=== PATIENT | male | born 1955 | race Caucasian/White ===

== ENCOUNTER 2023-11-09 18:55 | Inpatient (IN) | payer BC ==
[~2023-11-09] VITALS: Ht 177.8 cm; Wt 95.4 kg
[2023-11-09 19:16] LABS: BASO % 0.4 % (0.0-2.0); EOS # 0.3 K/mm3 (0.0-0.7); EOS % 3.4 % (0.0-4.0); GRAN # 4.9 K/mm3 (1.4-6.5); GRAN % 52.2 % (42.2-75.2); HEMOGLOBIN 15.9 g/dl (13.5-18.0); LYMPH # 3.3 K/mm3 (1.2-3.4); LYMPH % 34.6 % (20.0-51.0); MEAN CELL VOLUME 88 fl (80.0-100.0); MEAN CORPUSCULAR HEMOGLOBIN 33 pg (27-31); MEAN CORPUSCULAR HGB CONC 37 g/dl (33.0-37.0); MONO # 0.9 K/mm3 (0.1-0.6); PLATELET COUNT 193 K/mm3 (130-400); RED BLOOD COUNT 4.88 M/mm3 (4.20-5.60); REDCELL DISTRIBUTION WIDTH-CV 11.5 % (11.5-14.5)
[2023-11-09 19:36] LABS: ALBUMIN 4.2 gm/dL (3.4-4.8); BILIRUBIN,TOTAL 1.4 mg/dL (0.2-1.2); CALCIUM 10.1 mg/dL (8.4-10.2); CREATININE, serum 1.35 mg/dL (0.72-1.25); INR 1.2 (0.8-3.0); POTASSIUM 4.2 mmol/L (3.5-4.5); PROTHROMBIN TIME 12.8 SECONDS (9.7-12.8); TOTAL PROTEIN 7.8 gm/dL (6.2-8.1)
[2023-11-09 19:43] LABS: TROPONIN-I 0.073 ng/mL (0.00-0.033)
[2023-11-09] MEDS ORDERED: NS 1,000 ML IV ONE (20:00)
[2023-11-09] MEDS ORDERED: SYNTHROID0.137 MG PO (20:03)
[2023-11-09] MEDS ORDERED: SYNJARDY XR 121 EACH PO (20:03)
[2023-11-09] MEDS ORDERED: PRINIVIL2.5 MG PO (20:04)
[2023-11-09] MEDS ORDERED: LIPITOR20 MG PO (20:04)
[2023-11-09] MEDS ORDERED: FLOMAX 0.40.4 MG/CAP PO (20:05)
[2023-11-09] MEDS ORDERED: ASPIRIN E.C. 8181 MG PO (20:06)
[2023-11-09] MEDS ORDERED: MOUNJARO7.5 MG/0.5 SQ (20:06)
[2023-11-09] MEDS ORDERED: TOPROL XL 25MG25 MG PO (20:06)
[2023-11-09] MEDS ORDERED: NITROSTAT0.4 MG/TAB SL (20:07)
[2023-11-09] MEDS ORDERED: PLAVIX 75MG TAB75 MG PO (20:08)
[2023-11-09] MEDS ORDERED: Morphine 4 MG/ML VIAL IV PRN (20:45)
[2023-11-09] MEDS ORDERED: Albuterol/Ipratropium 3 MG-0.5 MG/3 ML Neb Soln IH PRN (20:45)
[2023-11-09 21:00] VITALS: BP_SYST 117
[2023-11-09] MEDS ORDERED: Ondansetron 4 MG/2 ML VIAL IV PRN (21:00)
[2023-11-09] MEDS ORDERED: NS 1,000 ML IV SCH (21:00)
[2023-11-09] MEDS ORDERED: Acetaminophen 325 MG TAB PO PRN (21:00)
[2023-11-09] MEDS ORDERED: Atorvastatin 20 MG TAB PO SCH (21:00)
[2023-11-09] MEDS ORDERED: Sennosides/Docusate 8.6-50 MG TAB PO SCH (21:00)
[2023-11-09] MEDS ORDERED: Clopidogrel 75 MG TAB PO SCH (21:00)
[2023-11-09] MEDS ORDERED: Mag/Al Hydrox/Simeth Susp 30 ML CUP PO PRN (21:00)
[2023-11-09] MEDS ORDERED: Dextrose 50% Water 25 GM/50 ML SYRINGE IV PRN (21:45)
[2023-11-09] MEDS ORDERED: Dextrose (Glucose) 15 GM (4 x 3.75 GM) Chewable TABLET PACK PO PRN (21:45)
[2023-11-09] MEDS ORDERED: Glucagon 1 MG VIAL IM PRN (21:45)
[2023-11-09 22:22] VITALS: BP 127/75; PULSE 95; TEMP 98.1
[2023-11-09] MEDS ORDERED: EUTHYROX137 MCG (22:39)
[2023-11-09 23:20] VITALS: BP 117/73; PULSE 96; TEMP 98.4
[2023-11-10] VITALS (11 sets, daily range): BP systolic 110–134; BP diastolic 72–82; PULSE 86–96; TEMP 97.4–98.2
--- NOTE | 2023-11-10 03:19 | NUR ---
PT ARRIVED TO THE MEDICAL FLOOR AROUND 2200 FROM ED. STATED HE FEELS OK, AT BEDSIDE. ALERT AND ORIENTED X4. NO C/O CHEST PAIN, NAUSEA, OR DIZZINESS AT THIS TIME. IV PATENT WITH FLUIDS RUNNING. SHIFT ASSESSMENT COMPLETE,VSS. DENIES PAIN AT THIS TIME. ASKED PT TO CALL FOR HELP GETTING UP, PT AGREES. NIGHT MEDS HELD BECAUSE PT ALREADY TOOK HIS MEDS FOR THE DAY. RESUME MEDS IN AM PER ADMITTING PHYSICIAN. CALL LIGHT WITHIN REACH. DENIES FURTHER NEED AT THIS TIME.
--- NOTE | 2023-11-10 06:29 | NUR ---
PT DOES NOT TAKE INSULIN AT HOME AND DOES NOT AGREE TO TAKE WHILE HERE IN THE HOSPITAL. WILL BE PASSING ON TO ONCOMING NURSE TO SEE ABOUT HAVING HIM TAKE HIS HOME MEDICATION SYNJARDY XL 25MG DAILY. PT WILL BRING MEDICATION IN THIS MORNING.
[2023-11-10 07:12] LABS: BASO % 0.6 % (0.0-2.0); EOS # 0.3 K/mm3 (0.0-0.7); EOS % 3.5 % (0.0-4.0); GRAN # 3.9 K/mm3 (1.4-6.5); GRAN % 54.5 % (42.2-75.2); LYMPH # 2.4 K/mm3 (1.2-3.4); MEAN CELL VOLUME 88 fl (80.0-100.0); MEAN CORPUSCULAR HEMOGLOBIN 32 pg (27-31); MEAN CORPUSCULAR HGB CONC 36 g/dl (33.0-37.0); MEAN PLATELET VOLUME 10.4 fl (7.4-10.4); MONO # 0.6 K/mm3 (0.1-0.6); MONO % 8.1 % (1.7-9.3); PLATELET COUNT 165 K/mm3 (130-400); RED BLOOD COUNT 4.37 M/mm3 (4.20-5.60); REDCELL DISTRIBUTION WIDTH-CV 11.6 % (11.5-14.5)
[2023-11-10 07:18] LABS: HEMATOCRIT 38.5 % (42.0-52.0); HEMOGLOBIN 13.9 g/dl (13.5-18.0)
[2023-11-10 07:43] LABS: ALANINE AMINOTRANSFERASE 36 U/L (0-55); ALBUMIN 3.6 gm/dL (3.4-4.8); ALKALINE PHOSPHATASE 74 U/L (40-150); ANION GAP 10 mmol/L (7-16); AST,SGOT 26 U/L (5-34); BLOOD UREA NITROGEN 20 mg/dL (8-26); CARBON DIOXIDE 20 mmol/L (23-31); CHLORIDE 106 mmol/L (98-107); CREATININE, serum 1.05 mg/dL (0.72-1.25); GLUCOSE 151 mg/dL (70-99); SODIUM 136 mmol/L (136-145); TOTAL PROTEIN 6.7 gm/dL (6.2-8.1)
[2023-11-10 07:55] LABS: TROPONIN-I < 0.010 ng/mL (0.00-0.033)
[2023-11-10] MEDS ORDERED: Insulin Lispro (HumaLOG) SQ SCH (08:00)
[2023-11-10] MEDS ORDERED: Lisinopril 5 MG TAB PO SCH (09:00)
[2023-11-10] MEDS ORDERED: Clopidogrel 75 MG TAB PO SCH (09:32)
--- NOTE | 2023-11-10 09:47 | NUR ---
PATIENT AWAKE IN BED UPON ENTERING ROOM. MORNING MEDICATIONS ADMINISTERED. SHIFT ASSESSMENT COMPLETED. PATIENT AND UPDATED ON POC. DENIES ANY CHEST PAIN OR SOB. IVF INFUSING. FALL PRECAUTIONS IN PLACE, CALL LIGHT WITHIN REACH. WILL CONTINUE TO MONITOR.
--- NOTE | 2023-11-10 10:30 | NUR ---
municipal maintenance worker met with patient and at bedside to discuss discharge planning. Patient verified demographic information. Patient resides with his Emilie ([phone]). Pt sees Dr. Christopher as his PCP and uses [facility]. 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 Patient and deny any discharge needs at this time and plan for patient to return home when medically stable for discharge.. Discharge: Home
[2023-11-11] VITALS (22 sets, daily range): BP systolic 98–127; BP diastolic 63–78; PULSE 66–90; TEMP 97.5–98.5
--- NOTE | 2023-11-11 07:00 | NUR ---
Report received from RALEIGH Cole. Pt alert and oriented this AM. Sitting up on edge of bed; offers no complaints. NPO for heart cath today. All questions answered appropriately. Call light in reach.
[2023-11-11 07:49] LABS: BASO # 0.1 K/mm3 (0.0-0.2); BASO % 0.7 % (0.0-2.0); EOS # 0.4 K/mm3 (0.0-0.7); GRAN # 3.3 K/mm3 (1.4-6.5); GRAN % 47.6 % (42.2-75.2); HEMATOCRIT 39.2 % (42.0-52.0); HEMOGLOBIN 13.8 g/dl (13.5-18.0); LYMPH # 2.6 K/mm3 (1.2-3.4); LYMPH % 37.4 % (20.0-51.0); MEAN CELL VOLUME 90 fl (80.0-100.0); MEAN CORPUSCULAR HEMOGLOBIN 32 pg (27-31); MEAN CORPUSCULAR HGB CONC 35 g/dl (33.0-37.0); MEAN PLATELET VOLUME 10.5 fl (7.4-10.4); MONO # 0.6 K/mm3 (0.1-0.6); PLATELET COUNT 159 K/mm3 (130-400); RED BLOOD COUNT 4.37 M/mm3 (4.20-5.60); REDCELL DISTRIBUTION WIDTH-CV 11.7 % (11.5-14.5)
[2023-11-11 08:13] LABS: ALBUMIN 3.5 gm/dL (3.4-4.8); BILIRUBIN,TOTAL 1.3 mg/dL (0.2-1.2); CALCIUM 8.9 mg/dL (8.4-10.2); CREATININE, serum 0.92 mg/dL (0.72-1.25); TOTAL PROTEIN 6.7 gm/dL (6.2-8.1)
[2023-11-11 08:26] LABS: CHOLESTEROL RISK RATIO 2.7; MAGNESIUM 1.9 mg/dL (1.6-2.6)
[2023-11-11 08:34] LABS: THYROID STIMULATING HORMONE 2.506 uIU/mL (0.350-4.940)
--- NOTE | 2023-11-11 09:40 | NUR ---
Pt called concrete rod buster light to report he was having a bloody nose. This nurse assessed pt and found he was having small amount of bleeding from right nare. Bleeding stopped after 1-2 minutes. ZIA Saab notified due to pt recently starting blood thinners. No new orders received. Instructed pt to call if bleeding occurs again.
[2023-11-11] MEDS ORDERED: TURMERIC500 MG PO (10:01)
--- NOTE | 2023-11-11 11:05 | NUR ---
Initial visit; Patient and his thanked Steel Post Installer Supervisor for stopping to see how he was getting along. Harvey says he is just in "limbo" waiting to see what comes next. They both thanked Steel Post Installer Supervisor and asked that Steel Post Installer Supervisor keep Harvey in her prayers.
--- NOTE | 2023-11-11 14:11 | NUR ---
Pt taken down to aquatic life laborer at this time for heart cath.
--- NOTE | 2023-11-11 14:41 | NUR ---
SEE MERGE FOR PROCEDURE DOCUMENTATION
[2023-11-11] MEDS ORDERED: Midazolam 2 MG/2 ML VIAL IV SCH (15:08)
[2023-11-11] MEDS ORDERED: fentaNYL 50 MCG/ML 2 ML VIAL IV SCH (15:09)
[2023-11-11] MEDS ORDERED: Nitroglycerin 100 MCG/ML (Cath Lab) 10 ML VIAL IA SCH (15:12)
[2023-11-11] MEDS ORDERED: Heparin 1,000 UNITS/ML 10 ML Multi-Dose VIAL IA SCH (15:13)
[2023-11-11] MEDS ORDERED: Naloxone 0.4 MG/ML VIAL IV PRN (15:30)
--- NOTE | 2023-11-11 15:39 | NUR ---
PATIENT ALERT AND ORIENTED, VSS. PATIENT TRANSPORTED VIA SLIDEBOARD TO BED, POSITIONED FOR COMFORT. TRANSFERRED VIA BED TO MEDICAL 315. VITAL SIGNS TAKEN ON ARRIVAL, VSS. PT REPORTS IMPROVED PAIN LEVEL, DENIES NAUSEA. RADIAL SITE CDI. TRANSFER OF CARE TO RALEIGH TAVAREZ. CALL LIGHT WITHIN REACH, BED IN LOWEST POSITION AND X3 BEDRAILS IN PLACE.
--- NOTE | 2023-11-11 23:33 | NUR ---
PT ALERT AND ORIENTED X4. POST HEART CATH PROCEDURE, AT THE START OF MY SHIFT 11 ML OF AIR ALREADY LET OUT OF RADIAL BAND. NO SIGNS OF BLEEDING OR HEMATOMA. PT DENIES PAIN AT THIS TIME. SHIFT ASSESSMENT COMPLETE, MEDICATED PER EMAR. VSS, EVEN UNLABORED RESPR. IV TO R AC PATENT. DENIES FURTHER NEED AT THIS TIME. CALL LIGHT WITHIN REACH.
[2023-11-12] VITALS (7 sets, daily range): BP systolic 107–126; BP diastolic 60–75; PULSE 81–82; TEMP 98–98.2
[2023-11-12 06:40] LABS: BASO % 0.5 % (0.0-2.0); EOS # 0.4 K/mm3 (0.0-0.7); EOS % 5.4 % (0.0-4.0); GRAN # 3.4 K/mm3 (1.4-6.5); GRAN % 51.2 % (42.2-75.2); HEMOGLOBIN 14.3 g/dl (13.5-18.0); LYMPH # 2.1 K/mm3 (1.2-3.4); LYMPH % 32.2 % (20.0-51.0); MEAN CELL VOLUME 88 fl (80.0-100.0); MEAN CORPUSCULAR HEMOGLOBIN 32 pg (27-31); MEAN CORPUSCULAR HGB CONC 37 g/dl (33.0-37.0); MEAN PLATELET VOLUME 10.1 fl (7.4-10.4); MONO # 0.7 K/mm3 (0.1-0.6); MONO % 10.4 % (1.7-9.3); PLATELET COUNT 156 K/mm3 (130-400); RED BLOOD COUNT 4.44 M/mm3 (4.20-5.60); REDCELL DISTRIBUTION WIDTH-CV 11.6 % (11.5-14.5)
[2023-11-12 06:53] LABS: ALBUMIN 3.5 gm/dL (3.4-4.8); BILIRUBIN,TOTAL 1.2 mg/dL (0.2-1.2); CALCIUM 8.7 mg/dL (8.4-10.2); CREATININE, serum 0.95 mg/dL (0.72-1.25); POTASSIUM 3.9 mmol/L (3.5-4.5); TOTAL PROTEIN 6.6 gm/dL (6.2-8.1)
[2023-11-12] MEDS ORDERED: Levothyroxine 0.112 MG,Levothyroxine 0.025 MG PO SCH (07:00)
--- NOTE | 2023-11-12 07:10 | NUR ---
PATIENT AWAKE AND ALERT, SITTING UP IN BED. PATIENTS CALL LIGHT WTIHIN REACH. PER PATIENT HE HAS SOME QUESTIONS FOR CARDIOLOGY, OTHERWISE HE IS READY FOR DISCHAGRE.
[2023-11-12] MEDS ORDERED: TOPROL XL 50MG50 MG PO (09:30)
--- NOTE | 2023-11-12 10:11 | NUR ---
FINESSE GIVEN DISCHARGE INSTRUCTIONS AND EDUCAITON. IV AND TELE STILL IN PLACE, DELLA RIDE NOT TO ARRIVE UNTIL 1430
--- NOTE | 2023-11-12 14:00 | NUR ---
PATIENT IV AND TELE REMOVED. PATIENT AND EDUCATED ON DISCHARGE INSTRUCTIONS. PATIENTS ARGUEMENTATIVE WITH THIS RN REGARDING DISCHARGE INSTRUCTIONS FOR PATIENTS CHEST PAIN. CARDIOLOGY CLIENT DEVELOPMENT DIRECTOR CONTACTED AND THIS RN INFORMED FAMILY OF INFORMATION RELAYED. (CLIENT DEVELOPMENT DIRECTOR HAD ALREADY SPOKE WIHT PATIENT THIS AM). PATIENT TAKEN VIA WHEELCHAIR TO ER ENTANCE BY PCT WHERE HE LEFT INSTABLE CONDITION WITH HIS .
== END 2023-11-12 14:00 | disposition home or self-care (01) | DRG 282 ==
LOC: COL.ER 18:55 → MEDICAL 20:44
PROVIDERS: Nurse Practitioner Primary Care; Physician Assistant; ADMIT Internal Medicine
PROC: 4A023N7 Measurement of Cardiac Sampling and Pressure, Left Heart, Percutaneous Approach (ICD-10-PCS; principal; 2023-11-09)
PROC: B2111ZZ Fluoroscopy of Multiple Coronary Arteries using Low Osmolar Contrast (ICD-10-PCS; 2023-11-09)
DX: I21.4 Non-ST elevation (NSTEMI) myocardial infarction (principal); I10 Essential (primary) hypertension; E78.5 Hyperlipidemia, unspecified; I20.0 Unstable angina
CPT/HCPCS: OP; C1769; G0378; J1644; J1650; J1815; J2250; J2405; J3010; J7030

== ENCOUNTER 2024-01-06 10:52 | Outpatient (RCR) | payer BC ==
[~2024-01-06 10:52] MED LIST: ASPIRIN E.C. 8181 MG PO; EUTHYROX137 MCG; FLOMAX 0.40.4 MG/CAP PO; LIPITOR20 MG PO; MOUNJARO7.5 MG/0.5 SQ; NITROSTAT0.4 MG/TAB SL; PLAVIX 75MG TAB75 MG PO; PRINIVIL2.5 MG PO; SYNJARDY XR 121 EACH PO; SYNTHROID0.137 MG PO; TOPROL XL 25MG25 MG PO; TOPROL XL 50MG50 MG PO; TURMERIC500 MG PO
== END 2024-01-24 | disposition home or self-care (01) ==
LOC: COL.CR
DX: Z48.812 Encounter for surgical aftercare following surgery on the circulatory system (principal); Z95.1 Presence of aortocoronary bypass graft